=== PATIENT | female | born 1990 | race Caucasian/White ===

== ENCOUNTER 2021-05-15 03:55 | Inpatient (IN) ==
[2021-05-15] MEDS ORDERED: BUTORPHANOL 2 MG/ML VIAL IV PRN (04:06)
[2021-05-15] MEDS ORDERED: MEPERIDINE 50 MG/1 ML VIAL IV PRN (04:06)
[2021-05-15] MEDS: LACTATED RINGERS 1,000 ML IV SCH ×2 (04:38→07:07)
[2021-05-15] MEDS: ONDANSETRON 4 MG/2 ML VIAL IV PRN ×2 (04:38→14:00)
[2021-05-15 05:04] LABS: Basophils # 0.1 10*3/uL (0.0-0.2); Basophils % 0.7 % (0.0-0.8); Eosinophils # 0.4 10*3/uL (0.0-0.87); Hematocrit 38.8 VOL% (35.7-47.0); Hemoglobin 12.5 GM/DL (12.0-16.0); Immature Granulocytes % 1.9 %; Immature Granulocytes Absolute 0.27 #; Lymphocytes # 2.8 10*3/uL (1.4-4.0); Lymphocytes % 20.4 % (21.3-54.2); Mean Corpuscular HGB Conc 32.2 GM/DL (32-36); Mean Platelet Volume 11.3 FL (9.6-12.0); Monocytes % 6.3 % (1.7-12.7); Neutrophils % 67.7 % (38.7-73.9); Platelet Count 196 T/CUMM (130-400); Red Blood Count 4.17 MC/CUMM (3.8-5.5); White Blood Count 13.9 T/CUMM (4-12)
[2021-05-15 05:28] LABS: Bilirubin,Total 0.6 MG/DL (0.20-1.00); Calcium 8.7 MG/DL (8.5-10.1); Osmolality,Calculated 269.8 MOS/KG (273-304); Potassium 3.6 MMOL/L (3.5-5.1)
[2021-05-15] MEDS ORDERED: ePHEDrine 50 MG/ML VIAL IV PRN (05:33)
[2021-05-15] MEDS ORDERED: ONDANSETRON 4 MG/2 ML VIAL IV ONE (05:33)
[2021-05-15] MEDS ORDERED: PROMETHAZINE 25 MG/1 ML VIAL IM ONE (05:33)
[2021-05-15] MEDS ORDERED: diphenhydrAMINE 50 MG/1 ML VIAL IV PRN ×2 (05:33)
[2021-05-15] MEDS ORDERED: hydrOXYzine HCL 25 MG/1 ML VIAL IM PRN (05:33)
[2021-05-15] MEDS ORDERED: NALOXONE 0.4 MG/ML VIAL IV PRN (05:33)
[2021-05-15] MEDS ORDERED: FAMOTIDINE 20 MG/2 ML VIAL IV ONE ×2 (05:34→05:45)
[2021-05-15] MEDS ORDERED: CITRIC ACID/SODIUM CITRATE 30 ML UDCUP PO ONE (05:34)
[2021-05-15] MEDS ORDERED: ePHEDrine 50 MG/ML VIAL ONE (05:44)
[2021-05-15] MEDS ORDERED: CITRIC ACID/SODIUM CITRATE 30 ML UDCUP ONE (05:44)
[2021-05-15] MEDS ORDERED: fentaNYL 2 MCG/ROPIV 0.2% EPID 100 ML EPIDURAL ONE (05:44)
[2021-05-15] MEDS ORDERED: LACTATED RINGERS 1,000 ML IV SCH (06:00)
[2021-05-15] MEDS ORDERED: fentaNYL 2 MCG/ROPIV 0.2% EPID 100 ML EPIDURAL SCH (06:00)
[2021-05-15] MEDS ORDERED: miSOPROStoL 200 MCG TABLET ONE (08:27)
[2021-05-15] MEDS ORDERED: METHYLERGONOVINE 0.2 MG/1 ML AMP ONE (08:28)
[2021-05-15] MEDS ORDERED: OXYTOCIN/LR 20 UNIT/1,000 ML BAG IV ONE (08:28)
[2021-05-15] MEDS ORDERED: CARBOPROST TROMETHAMINE 250 MCG/ML AMP IM ONE (08:28)
[2021-05-15] MEDS ORDERED: LIDOCAINE 1% 50 ML VIAL ONE (08:29)
[2021-05-15] MEDS ORDERED: METHYLERGONOVINE 0.2 MG/1 ML AMP IM ONE (10:56)
[2021-05-15] MEDS: OXYTOCIN/LR 20 UNIT/1,000 ML BAG IV SCH ×2 (11:13→12:46)
[2021-05-15 11:18] LABS: Cord Venous Blood HCO3 22.1 MMOL/L; Cord Venous Blood PCO2 46.8 MMHG; Cord Venous Blood PO2 32.8
[2021-05-15] MEDS: IBUPROFEN 800 MG TABLET PO PRN ×2 (13:58→21:25)
[2021-05-15] MEDS: DOCUSATE SODIUM 100 MG CAPSULE PO SCH (21:17)
[2021-05-16 06:16] LABS: Basophils # 0.1 10*3/uL (0.0-0.2); Basophils % 0.5 % (0.0-0.8); Eosinophils # 0.4 10*3/uL (0.0-0.87); Eosinophils % 2.5 % (0.00-10.9); Hematocrit 34.5 VOL% (35.7-47.0); Hemoglobin 10.9 GM/DL (12.0-16.0); Immature Granulocytes % 0.9 %; Immature Granulocytes Absolute 0.14 #; Lymphocytes # 2.1 10*3/uL (1.4-4.0); Lymphocytes % 13.9 % (21.3-54.2); Mean Corpuscular HGB Conc 31.6 GM/DL (32-36); Mean Corpuscular Volume 94.3 FL (87-102); Mean Platelet Volume 10.9 FL (9.6-12.0); Monocytes % 5.5 % (1.7-12.7); Neutrophils % 76.7 % (38.7-73.9); Platelet Count 146 T/CUMM (130-400); Red Blood Count 3.66 MC/CUMM (3.8-5.5)
[2021-05-16] MEDS ORDERED: ONDANSETRON 4 MG TABLET PO PRN (07:49)
[2021-05-16] MEDS: DOCUSATE SODIUM 100 MG CAPSULE PO SCH ×2 (07:54→21:17)
[2021-05-16] MEDS: IBUPROFEN 800 MG TABLET PO PRN ×3 (07:54→23:45)
[2021-05-16] MEDS ORDERED: BENZOCAINE 20%/MENTHOL 0.5% SPRAY 56 GM CAN TOP PRN (15:36)
[2021-05-16] MEDS ORDERED: WITCH HAZEL PADS 100/JAR TOP PRN (19:44)
[2021-05-16] MEDS ORDERED: HYDROCORTISONE 2.5% RECTAL CREAM 30 GM TUBE TOP PRN (19:45)
[2021-05-17 08:37] VITALS: BP 122/77
[2021-05-17] MEDS: DOCUSATE SODIUM 100 MG CAPSULE PO SCH (09:02)
== END 2021-05-17 13:45 | disposition home or self-care (01) | DRG 807 ==
LOC: N.LDOUT 03:55 → N.LD 03:59 → N.OB 12:55
PROVIDERS: ADMIT Obstetrics & Gynecology; ATTEND Obstetrics & Gynecology